=== PATIENT | female | born 1965 | race Caucasian/White ===

== ENCOUNTER 2017-03-26 22:51 | Inpatient (IN) | END 2017-03-30 14:47 | disposition home or self-care (01) | DRG 389 ==

== ENCOUNTER 2017-04-06 12:43 | Inpatient (IN) | END 2017-04-09 13:55 | disposition left against medical advice (07) | DRG 445 ==

== ENCOUNTER 2017-05-16 15:19 | Emergency (ER) | END 2017-05-16 21:03 | disposition home or self-care (01) ==

== ENCOUNTER 2017-09-22 14:56 | Day surgery (SDC) | END 2017-09-22 17:34 | disposition home or self-care (01) ==

== ENCOUNTER 2017-10-24 12:27 | Emergency (ER) | END 2017-10-24 14:56 | disposition home or self-care (01) ==

== ENCOUNTER 2018-07-14 14:51 | Emergency (ER) | payer MEDICARE, OTHER ==
[~2018-07-14] VITALS: Ht 157.5 cm; Wt 64.0 kg
[~2018-07-14 14:51] MED LIST: BENZ1TAB7 PO; CLON0.5T14 PO; DONE5TAB7 PO; ESCI20TA PO; MECL12.574 PO; MEMA5TAB PO; PROP10TA6 PO; QUET200T27 PO; QUET400T4 PO; VALB40CA PO
[2018-07-14 15:11] VITALS: Ht 157.5 cm; Wt 64.0 kg
--- NOTE | 2018-07-14 18:30 | ERD ---
ER Documentation Chief Complaint Chief Complaint pt is bib son with c/o she has weakness, excess saliva, cant eat/move HPI This is a very pleasant 53-year-old female with a history of depression and schizophrenia who states that she is here because she does not feel good. She states that her psychiatrist had changed some medications 2 weeks ago and then discontinued a few of them 3 days ago. The patient is complaining that she has a difficult time moving her muscles and sometimes they lock up. She says she is having excessive saliva and sometimes can control the movement of her mouth. She is not having any suicidal or homicidal ideations and not having any auditory or visual hallucinations. ROS All systems reviewed and are negative except as per history of present illness. Medications Home Meds Active Scripts Meclizine Hcl* (Antivert*) 12.5 Mg Tab, 25 MG PO Q6H PRN for DIZZINESS, #20 TAB Prov:MICHELLE CASAREZ MD 10/24/17 Reported Medications Quetiapine Fumarate* (Quetiapine Fumarate*) 200 Mg Tablet, 200 MG PO HS, TAB 09/22/17 Memantine* (Namenda*) 5 Mg Tablet, 5 MG PO BID, #60 TAB 09/22/17 Valbenazine Tosylate (Ingrezza) 40 Mg Capsule, 40 MG PO, CAP 09/22/17 Propranolol Hcl* (Propranolol Hcl*) 10 Mg Tablet, 10 MG PO BID, TAB take 10mg by mouth in the morning and 20mg at lunch. 04/05/17 Clonazepam* (Clonazepam*) 0.5 Mg Tablet, 0.25 MG PO BID, TAB 04/05/17 Escitalopram Oxalate* (Lexapro*) 20 Mg Tablet, 20 MG PO QHS, #30 TAB 03/29/17 Quetiapine Fumarate* (Seroquel* XR) 400 Mg Tab.sr.24h, 400 MG PO QHS, #30 TAB 03/29/17 Benztropine Mesylate* (Cogentin*) 1 Mg Tab, 1 MG PO BID, TAB 03/28/17 Donepezil* (Donepezil*) 5 Mg Tablet, 5 MG PO DAILY, #30 TAB 03/28/17 Allergies Allergies: Coded Allergies: No Known Allergy (Unverified , N/A, 10/24/17) PMhx/Soc History of Surgery: Yes (c section x1) Anesthesia Reaction: Yes Hx Neurological Disorder: No Hx Respiratory Disorders: No Hx Cardiac Disorders: No Hx Psychiatric Problems: Yes (SCHINOPHRENIA, Dementia) Hx Miscellaneous Medical Probl: No Hx Alcohol Use: No Hx Substance Use: No Hx Tobacco Use: Yes (6 CIG) Smoking Status: Current every day smoker FmHx Family History: No coronary disease Physical Exam Vitals Vital Signs Date Temp Pulse Resp B/P (MAP) Pulse Ox O2 O2 Flow FiO2 Time Delivery Rate 07/14/18 98.3 65 16 115/56 98 17:20 (75) 07/14/18 98.3 98 16 115/56 98 15:11 (75) Physical Exam Const: Well-developed, well-nourished Head: Atraumatic, normocephalic Eyes: Normal Conjunctiva, PERRLA, EOMI, normal sclera, no nystagmus ENT: Normal External Ears, Nose and Mouth, moist mucus membranes. Neck: Full range of motion. No meningismus, no lymphadenopathy. Resp: Clear to auscultation bilaterally, no wheezing, rhonchi, rales Cardio: Regular rate and rhythm, no murmurs, S1 S2 present Abd: Soft, non tender x 4, non distended. Normal bowel sounds, no guarding or rebound, no pulsitile abdominal masses or bruits Skin: No petechiae or rashes, no ecchymosis , no maculopapular rash Back: No midline or flank tenderness Ext: No cyanosis, or edema, FROM x 4, normal inspection, neurovas cularly intact x 4 Neur: Awake and alert, STR 5/5 x 4, sensation intact x 4, no focal findings, cerebellum intact Psych: Normal Mood and Affect some what flat Procedures/MDM Patient is on multiple medications. It sounds like she is having some type of cholinergic issue. I will consult psychiatry to review her medications and see what we can do about changing some dosage or stopping some. Medications: Aristada 441 mg IM q. 4 weekslast given 06/19/2018 Seroquel 100 mg p.o. nightly Lexapro 20 mg p.o. nightly Ingrezza 80 mg p.o. nightly Propanolol 20 mg p.o. every morning and 20 mg p.o. q. noon Klonopin 0.25 mg p.o. nightly Donezepil 5 mg p.o. nightly Memantine 5 mg p.o. twice daily that the neurologist discontinued on 07/11/2018 Meclizine 12.5 mg p.o. as needed Vitamin D Calcium 600 mg Amlodipine 5 mg p.o. dailyneurologist discontinued 07/11/2018 Omeprazole 40 mg p.o. daily Discussed the case with the telemetry psychiatrist who evaluated her as well. We feel that after discussion and that he recommends just maintaining current therapy and to call her doctor on Tuesday. Her symptoms are definitely side effects however there are not severe enough or life-threatening and are only mild. He feels that she just needs some medi cation adjusting. I relayed this to her Departure Diagnosis: Primary Impression: Medication side effects Condition: Stable VISHAL MICHAUD DO July 14, 2018 18:30
--- NOTE | 2018-07-14 18:35 | PSY ---
Date/Time of Note Date/Time of Note DATE: 07/14/18 TIME: 21:29 Psychiatric Subjective Eval Consent Pt consented to telemedicine: Yes Subjective Evaluation Patient location: emergency Chief Complaint: pt is bib son with c/o she has weakness, excess saliva, cant eat/move History of present illness HPI: 53 yo female with ho schizophrenia and remote cocaine dependence, bib son due to feeling weak, decreased eating or moving and excessive saliva after changing meds. Pt also reports not feeling well, says that this is because of meds that her psychiatrst recntly prescribed. Pt denies si or drug use. Reports she has trouble moving her limbs. Denies si or avh. spoke with the attending. He read note from pt's outpatient psychiatrist w pastor indicated that pt has been decreasing clonazepam, off of benztropine, TD resolved with ingrezza and pt began Abilify depot. Past Psych Hx: + ho psych admits, denies suicide attempts PMHx: pt unable to repor nkda Meds: aristada, clonazepam 0.25mg bid, lexapro, 50mg seroquel hs MSE: casually groomed, cooperative, decreased prosody of speech, latency of speech rseponse blunted affect, appears parkinsonized mildly disorganized, vague, denies avh denies si/hi Imp: 53 yo female with schizophrenia, appears to be suffering EPS from meds (depot abilify) recommend parallel hx from son; if pt is able to fxn (and no si is confirmed) pt could be discharged as long as she can eat and move at home; if side fx too severe pt would need admission since pt on depot med best treatment would be to touch base with pt's outpatient psychiatrist to consider lowering dose of depot med utox Medical history Problems Medical Problems: (1) Anemia Status: Acute (2) Anemia Status: Acute (3) Anemia Status: Acute (4) Biliary colic Status: Acute (5) Bursitis, prepatellar Status: Acute (6) Dizziness Status: Acute (7) Dizziness Status: Acute (8) Generalized abdominal pain Status: Acute (9) Sexually transmitted disease Status: Acute (10) Small bowel obstruction Status: Acute (11) UTI (urinary tract infection) Status: Acute Allergies: Coded Allergies: No Known Allergy (Unverified , N/A, 10/24/17) Assessment and Plan Recommendation/Plan Multiple antipsychotics: Yes Discharge Disposition: Community (Other) Legal Status: Voluntary ROSA M PINEDA July 14, 2018 18:35
[2018-07-14 19:28] VITALS: BP 105/79; PULSE 63; RESP 16
== END 2018-07-14 20:06 | disposition home or self-care (01) ==
LOC: E/R 14:51
DX: T88.7XXA Unspecified adverse effect of drug or medicament, initial encounter (principal); F17.210 Nicotine dependence, cigarettes, uncomplicated; R40.2142 Coma scale, eyes open, spontaneous, at arrival to emergency department; R40.2362 Coma scale, best motor response, obeys commands, at arrival to emergency department; R40.2252 Coma scale, best verbal response, oriented, at arrival to emergency department; Y82.9 Unspecified medical devices associated with adverse incidents
CPT/HCPCS: 99282

== ENCOUNTER 2018-07-21 21:08 | Inpatient (IN) | payer MEDICARE, OTHER ==
[~2018-07-21] VITALS: Ht 160 cm; Wt 58.3 kg
[2018-07-21] MEDS ORDERED: ACETAMINOPHEN 325 MG TAB PO PRN ×2 (23:00→23:30)
[2018-07-21] MEDS ORDERED: ONDANSETRON 4 MG INJ IV PRN ×2 (23:00→23:30)
[2018-07-21] MEDS ORDERED: ASPIRIN 81 MG TAB PO ONE (23:30)
[2018-07-21] MEDS ORDERED: NACL 0.9% 3 ML SYG IV SCH (23:30)
[2018-07-21] MEDS ORDERED: ALBUTEROL/IPRATROPIUM (NEB) 3 ML AMP HHN PRN (23:30)
[2018-07-21] MEDS: MEMANTINE 5 MG TAB PO SCH (23:30)
[2018-07-21] MEDS ORDERED: MECLIZINE 12.5 MG TAB PO PRN (23:30)
[2018-07-21] MEDS: BENZTROPINE 1 MG TAB PO SCH (23:30)
--- NOTE | 2018-07-21 23:33 | HP ---
Date/Time of Note Date/Time of Note DATE: 07/21/18 TIME: 23:33 Assessment/Plan VTE Prophylaxis Pharmacological prophylaxis: heparin Lines/Catheters IV [facility]from [facility] Saline Lock Assessment/Plan Assessment/Plan 53-year-old male with a history of schizophrenia brought to the ER for 1. Rule out CVA -Patient presented with drooling, slurred speech, diplopia, headache, right upper and lower extremity weakness/numbness. Patient now also reporting left upper extremity weakness -He was evaluated by the telemetry psychiatrist a week ago for a drooling and weakness which was thought to be secondary to EPS from meds -Head CT negative for acute findings -Check CT angio the head and neck and MRI of the brain -2D echo -Aspirin. Will not add statin at this time. -Neurology and psychiatry consult -PT and speech/swallow eval 2. Schizophrenia: Continue home meds -See #1 3. Cognitive impairment: Continue donepezil and memantine Result Diagram: 07/21/18214307/21/182143 Results 24hrs Laboratory Tests Test 07/21/18 21:44 07/21/18 21:45 White Blood Count 4.7 #L Red Blood Count 4.30 Hemoglobin 12.3 Hematocrit 37.2 Mean Corpuscular Volume 86.5 Mean Corpuscular Hemoglobin 28.6 L Mean Corpuscular Hemoglobin Concent 33.1 Red Cell Distribution Width 13.3 Platelet Count 231 # Mean Platelet Volume 9.3 Immature Granulocytes % 0.200 Neutrophils % 44.9 Lymphocytes % 41.8 Monocytes % 7.3 Eosinophils % 5.4 Basophils % 0.4 Nucleated Red Blood Cells % 0.0 Immature Granulocytes # 0.010 Neutrophils # 2.1 Lymphocytes # 2.0 Monocytes # 0.3 Eosinophils # 0.3 Basophils # 0.0 Nucleated Red Blood Cells # 0.0 Prothrombin Time 12.0 Prothrombin Time Ratio 0.9 INR International Normalized Ratio 0.88 Activated Partial Thromboplast Time 29.1 Sodium Level 143 Potassium Level 3.9 Chloride Level 107 Carbon Dioxide Level 25 Anion Gap 11 Blood Urea Nitrogen 10 Creatinine 0.55 Est Glomerular Filtrat Rate mL/min > 60 Glucose Level 91 Calcium Level 9.8 Total Bilirubin 0.9 Direct Bilirubin 0.00 Indirect Bilirubin 0.9 Aspartate Amino Transf (AST/SGOT) 25 Alanine Aminotransferase (ALT/SGPT) 13 Alkaline Phosphatase 83 Troponin I < 0.012 Total Protein 8.0 Albumin 4.5 Globulin 3.50 H Albumin/Globulin Ratio 1.28 Triglycerides Level 102 Cholesterol Level 180 LDL Cholesterol, Calculated 100 HDL Cholesterol 60 Cholesterol/HDL Ratio 3.0 Urine Color STRAW Urine Clarity CLEAR Urine pH 7.0 Urine Specific [place] 1.008 Urine Ketones NEGATIVE Urine Nitrite NEGATIVE Urine Bilirubin NEGATIVE Urine Urobilinogen NEGATIVE Urine Leukocyte Esterase TRACE A Urine Microscopic RBC 1 Urine Microscopic WBC 5 Urine Hemoglobin NEGATIVE Urine Glucose NEGATIVE Urine Total Protein NEGATIVE Hemoglobin A1c 5.3 Urine Opiates Screen Negative Urine Barbiturates Negative Urine Amphetamines Screen Negative Urine Benzodiazepines Screen Negative Urine Cocaine Screen Negative Urine Cannabinoids Negative HPI/ROS Admit Date/Time Admit Date/Time Hx of Present Illness This is a 53-year-old female with a history of schizophrenia, gastritis, gallstones, SBO who was brought to the ER for drooling, double vision, slurred speech, headache, right upper and lower extremity weakness/numbness and chest pain. Patient was sent with a piece of paper describing her symptoms because she is a poor historian. Symptom of drooling and slurred speech has been going on for at least 10 days. On my questioning, she complained of headache and left upper extremity weakness. When I told her about what is written on the paper that she came in with, she acknowledges that she has been having right-sided weakness, but said now she is having left upper extremity weakness as well. I noticed some tremor of both upper extremities. He did come to our ER a week ago and at that time he was evaluated by the telemetry psychiatrist who felt patient had EPS from meds. It seems like patient have had TD which resolved after he was started with Ingrezza. Patient at that time was instructed to follow-up with his own psychiatrist. When he presented to the ER this time, head CT negative for acute findings. Heart rate has been in the 50s otherwise vitals stable PMH/Family/Social Past Medical History Medical History: other (See HPI) Medications Current Medications Ondansetron HCl (Zofran Inj) 4 mg ER BRIDGE PRN IV NAUSEA/VOMITING; Start 07/21/18 at 23:00; Stop 07/22/18 at 22:59 Acetaminophen (Tylenol Tab) 650 mg ER BRIDGE PRN PO .MILD PAIN 1-3 OR TEMP; Start 07/21/18 at 23:00; Stop 07/22/18 at 22:59 Aspirin (Aspirin) 162 mg ONCE ONCE PO ; Start 07/21/18 at 23:30; Stop 07/21/18 at 23:31; Status UNV Coded Allergies: No Known Allergy (Unverified , N/A, 10/24/17) Past Surgical History Past Surgical Hx: other (See HPI) Family History Significant Family History: no pertinent family hx Social History Alcohol Use: none Smoking Status: Never smoker Drug Use: none Exam/Review of Systems Vital Signs Vitals Vital Signs Date Temp Pulse Resp B/P (MAP) Pulse Ox O2 O2 Flow FiO2 Time Delivery Rate 07/21/18 97.1 56 20 109/62 97 21:11 (78) Exam Constitutional: other (No acute distress) Head: normocephalic, atraumatic Eyes: PERRL Respiratory: clear to auscultation Cardiovascular: regular rate and rhythm Gastrointestinal: soft Extremities: normal pulses MIGUE BLOUNT MD July 21, 2018 23:33
--- NOTE | 2018-07-21 23:34 | ERD ---
ER Documentation Chief Complaint Chief Complaint DROOLING X 10 DAYS. PAIN, NUMNESS R SIDE BODY H/A . L SIDE FACE NUMB X 3 DA HPI 53-year-old female history of schizophrenia who presents to the emergency room complaining of 10 days of slurred speech, drooling, difficulty swallowing, right-sided upper and lower extremity paresis and numbness and tingling. The patient has no weakness currently. Patient does have some numbness and tingling. She denies any new medications. No fevers or chills, no falls or head injury. ROS All systems reviewed and are negative except as per history of present illness. Medications Home Meds Active Scripts Meclizine Hcl* (Antivert*) 12.5 Mg Tab, 25 MG PO Q6H PRN for DIZZINESS, #20 TAB Prov:MICHELLE CASAREZ MD 10/24/17 Reported Medications Quetiapine Fumarate* (Quetiapine Fumarate*) 200 Mg Tablet, 200 MG PO HS, TAB 09/22/17 Memantine* (Namenda*) 5 Mg Tablet, 5 MG PO BID, #60 TAB 09/22/17 Valbenazine Tosylate (Ingrezza) 40 Mg Capsule, 40 MG PO, CAP 09/22/17 Propranolol Hcl* (Propranolol Hcl*) 10 Mg Tablet, 10 MG PO BID, TAB take 10mg by mouth in the morning and 20mg at lunch. 04/05/17 Clonazepam* (Clonazepam*) 0.5 Mg Tablet, 0.25 MG PO BID, TAB 04/05/17 Escitalopram Oxalate* (Lexapro*) 20 Mg Tablet, 20 MG PO QHS, #30 TAB 03/29/17 Quetiapine Fumarate* (Seroquel* XR) 400 Mg Tab.sr.24h, 400 MG PO QHS, #30 TAB 03/29/17 Benztropine Mesylate* (Cogentin*) 1 Mg Tab, 1 MG PO BID, TAB 03/28/17 Donepezil* (Donepezil*) 5 Mg Tablet, 5 MG PO DAILY, #30 TAB 03/28/17 Allergies Allergies: Coded Allergies: No Known Allergy (Unverified , N/A, 10/24/17) PMhx/Soc History of Surgery: Yes (c section x1) Anesthesia Reaction: Yes Hx Neurological Disorder: No Hx Respiratory Disorders: No Hx Cardiac Disorders: No Hx Psychiatric Problems: Yes (SCHINOPHRENIA, Dementia) Hx Miscellaneous Medical Probl: No Hx Alcohol Use: No Hx Substance Use: No Hx Tobacco Use: Yes (6 CIG) Smoking Status: Never smoker FmHx Family History: No diabetes Physical Exam Vitals Vital Signs Date Temp Pulse Resp B/P (MAP) Pulse Ox O2 O2 Flow FiO2 Time Delivery Rate 07/21/18 97.1 56 20 109/62 97 21:11 (78) Physical Exam General: Well developed, well nourished, no acute distress Head: Normocephalic, atraumatic. Eyes: Pupils equally reactive, EOM intact ENT: Moist mucous membranes Neck: Supple, no lymphadenopathy Respiratory: Lungs clear bilaterally, no distress Cardiovascular: RRR, no murmurs, rubs, or gallops Abdominal: Soft, non-tender, non-distended, no peritoneal signs : Deferred MSK: No edema, no unilateral swelling, 5/5 strength Neurologic: Alert and oriented, moving all extremities, slight drooling and dysarthria, no focal weakness, no cerebellar signs, no pronator drift, normal rapid alternating movements. NIHSS 1 Skin: No rash Psych: Normal mood Result Diagram: 07/21/18214307/21/182143 Results 24 hrs Laboratory Tests Test 07/21/18 21:44 07/21/18 21:45 White Blood Count 4.7 10^3/ul Red Blood Count 4.30 10^6/ul Hemoglobin 12.3 g/dl Hematocrit 37.2 % Mean Corpuscular Volume 86.5 fl Mean Corpuscular Hemoglobin 28.6 pg Mean Corpuscular Hemoglobin Concent 33.1 g/dl Red Cell Distribution Width 13.3 % Platelet Count 231 10^3/UL Mean Platelet Volume 9.3 fl Immature Granulocytes % 0.200 % Neutrophils % 44.9 % Lymphocytes % 41.8 % Monocytes % 7.3 % Eosinophils % 5.4 % Basophils % 0.4 % Nucleated Red Blood Cells % 0.0 /100WBC Immature Granulocytes # 0.010 10^3/ul Neutrophils # 2.1 10^3/ul Lymphocytes # 2.0 10^3/ul Monocytes # 0.3 10^3/ul Eosinophils # 0.3 10^3/ul Basophils # 0.0 10^3/ul Nucleated Red Blood Cells # 0.0 10^3/ul Prothrombin Time 12.0 Sec Prothrombin Time Ratio 0.9 INR International Normalized Ratio 0.88 Activated Partial Thromboplast Time 29.1 Sec Sodium Level 143 mmol/L Potassium Level 3.9 mmol/L Chloride Level 107 mmol/L Carbon Dioxide Level 25 mmol/L Anion Gap 11 Blood Urea Nitrogen 10 mg/dl Creatinine 0.55 mg/dl Est Glomerular Filtrat Rate mL/min > 60 mL/min Glucose Level 91 mg/dl Calcium Level 9.8 mg/dl Total Bilirubin 0.9 mg/dl Direct Bilirubin 0.00 mg/dl Indirect Bilirubin 0.9 mg/dl Aspartate Amino Transf (AST/SGOT) 25 IU/L Alanine Aminotransferase (ALT/SGPT) 13 IU/L Alkaline Phosphatase 83 IU/L Troponin I < 0.012 ng/ml Total Protein 8.0 g/dl Albumin 4.5 g/dl Globulin 3.50 g/dl Albumin/Globulin Ratio 1.28 Triglycerides Level 102 mg/dl Cholesterol Level 180 mg/dl LDL Cholesterol, Calculated 100 mg/dl HDL Cholesterol 60 mg/dl Cholesterol/HDL Ratio 3.0 RATIO Urine Color STRAW Urine Clarity CLEAR Urine pH 7.0 Urine Specific [place] 1.008 Urine Ketones NEGATIVE mg/dL Urine Nitrite NEGATIVE mg/dL Urine Bilirubin NEGATIVE mg/dL Urine Urobilinogen NEGATIVE mg/dL Urine Leukocyte Esterase TRACE Vanesa/ul Urine Microscopic RBC 1 /HPF Urine Microscopic WBC 5 /HPF Urine Hemoglobin NEGATIVE mg/dL Urine Glucose NEGATIVE mg/dL Urine Total Protein NEGATIVE mg/dl Hemoglobin A1c 5.3 % Urine Opiates Screen Negative Urine Barbiturates Negative Urine Amphetamines Screen Negative Urine Benzodiazepines Screen Negative Urine Cocaine Screen Negative Urine Cannabinoids Negative Current Medications Medications Dose Sig/Bev Start Time Status Last (Trade) Ordered Route PRN Stop Time Admin Dose Reason Admin Ondansetron 4 mg ER BRIDGE 07/21/18 HCl (Zofran PRN IV 23:00 Inj) NAUSEA/VOMITI 07/22/18 22:59 NG 650 mg ER BRIDGE 07/21/18 Acetaminophen PRN PO 23:00 (Tylenol .MILD PAIN 07/22/18 22:59 Tab) 1-3 OR TEMP Procedures/MDM EKG, MONITORS, & DIAGNOSTIC IMAGING: EKG: I reviewed and interpreted a 12-lead EKG. Rhythm: Normal sinus rhythm Ectopy: None Arrhythmia: None Intervals: No abnormalities ST segments: No elevations or depressions T waves: No contiguous inversions Interpretation: No acute cardiac ischemia Chest x-ray: I reviewed and interpreted a 1 view of the chest Mediastinum: No enlargement Cardiac silhouette: No cardiomegaly Airspace: Clear lung mckeon bilaterally without evidence of pneumothorax Bones: No evidence of fracture Interpretation: No acute cardiopulmonary process CT Brain: No acute process per radiologist read LAB INTERPRETATION: No acute process, reviewed. MEDICAL DECISION MAKING: The patient's symptoms are subacute and 10 days in etiology. The patient's NIH SS is 1. The patient may potentially have evidence of a subacute stroke that warrants hospitalization, risk stratification and MRI imaging. ER COURSE: Stroke assessment and timing: Last known well time: Proximal 2009 days ago NIHSS: 1 TPA decision-making: The patient is not a candidate given subacute presentation greater than 10 days. Interventional decision-making: Patient is not a candidate given subacute presentation greater than 10 days Aspirin provided I kept the patient and/or family informed of laboratory and diagnostic imaging results throughout the emergency room course. DISPOSITION PLAN: Telemetry admission Accepting care team and consultations: I discussed the current laboratory data, diagnostic imaging and emergency care provided. Admitting team: Dr. Sinclair Admitting team indication: Insurance directed Departure Diagnosis: Primary Impression: Slurred speech Additional Impression: Right sided weakness Condition: Stable DUSTY NORRIS MD July 21, 2018 23:34
[2018-07-22] VITALS (13 sets, daily range): BP systolic 77–113; BP diastolic 42–66; PULSE 48–61; RESP 17–22; Ht 160 cm; Wt 58.3 kg
[2018-07-22] MEDS: BENZTROPINE 1 MG TAB PO SCH ×2 (09:20→20:14)
[2018-07-22] MEDS: MEMANTINE 5 MG TAB PO SCH ×2 (09:20→20:15)
[2018-07-22] MEDS: ASPIRIN 81 MG TAB PO SCH (09:20)
[2018-07-22] MEDS: clonAZEPAM 0.5 MG TAB PO SCH ×2 (09:20→20:13)
[2018-07-22] MEDS: ENOXAPARIN 40 MG/0.4 ML SYG SC SCH (10:05)
[2018-07-22] MEDS ORDERED: SOD CHLORIDE 0.9% 100 ML ONE (11:28)
[2018-07-22] MEDS ORDERED: IOHEXOL 100 ML ONE (11:28)
[2018-07-22] MEDS: PROPRANOLOL 10 MG TAB PO SCH ×2 (14:02→20:14)
[2018-07-22] MEDS: DONEPEZIL 5 MG TAB PO SCH (14:02)
--- NOTE | 2018-07-22 16:49 | PN ---
Date/Time of Note Date/Time of Note DATE: 07/22/18 TIME: 16:46 Assessment/Plan VTE Prophylaxis Risk score (from Nsg)>0 risk: 2 Pharmacological prophylaxis: LMWH Lines/Catheters IV Catheter Type (from Nrsg): Saline Lock Urinary Cath still in place: No Assessment/Plan Hospital Course 53-year-old male with a history of schizophrenia brought to the ER for 1. Rule out CVA -Patient presented with drooling, slurred speech, diplopia, headache, right upper and lower extremity weakness/numbness. Patient now also reporting left upper extremity weakness -Patient was evaluated by the telemetry psychiatrist a week ago for a drooling and weakness which was thought to be secondary to EPS from meds -Head CT negative for acute findings -Check CT angio the head and neck and MRI of the brain -2D echo -Aspirin. Will not add statin at this time. -Neurology and psychiatry consults obtained -PT and speech/swallow eval 2. Schizophrenia: Continue home meds -See #1 3. Cognitive impairment: Continue donepezil and memantine Prophylaxis: Lovenox Result Diagram: 07/22/18 0432 07/22/18 0432 Results 24hrs Laboratory Tests Test 07/21/18 21:44 07/21/18 21:45 07/21/18 23:55 07/22/18 04:32 White Blood Count 4.7 #L 4.5 L Red Blood Count 4.30 3.89 L Hemoglobin 12.3 11.1 L Hematocrit 37.2 33.9 L Mean Corpuscular 86.5 87.1 Volume Mean Corpuscular 28.6 L 28.5 L Hemoglobin Mean Corpuscular 33.1 32.7 Hemoglobin Concent Red Cell 13.3 13.2 Distribution Width Platelet Count 231 # 205 Mean Platelet Volume 9.3 9.5 Immature 0.200 0.200 Granulocytes % Neutrophils % 44.9 37.8 L Lymphocytes % 41.8 48.1 Monocytes % 7.3 8.0 Eosinophils % 5.4 5.5 Basophils % 0.4 0.4 Nucleated Red Blood 0.0 0.0 Cells % Immature 0.010 0.010 Granulocytes # Neutrophils # 2.1 1.7 Lymphocytes # 2.0 2.2 Monocytes # 0.3 0.4 Eosinophils # 0.3 0.3 Basophils # 0.0 0.0 Nucleated Red Blood 0.0 0.0 Cells # Prothrombin Time 12.0 Prothrombin Time 0.9 Ratio INR International 0.88 Normalized Ratio Activated 29.1 Partial Thromboplast Time Sodium Level 143 141 Potassium Level 3.9 3.5 Chloride Level 107 107 Carbon Dioxide Level 25 27 Anion Gap 11 7 Blood Urea Nitrogen 10 11 Creatinine 0.55 0.56 Est Glomerular > 60 > 60 Filtrat Rate mL/min Glucose Level 91 88 Calcium Level 9.8 9.4 Total Bilirubin 0.9 0.9 Direct Bilirubin 0.00 0.00 Indirect Bilirubin 0.9 0.9 Aspartate Amino 25 22 Transf (AST/SGOT) Alanine 13 17 Aminotransferase (AL T/SGPT) Alkaline Phosphatase 83 67 Troponin I < 0.012 < 0.012 < 0.012 Total Protein 8.0 6.6 # Albumin 4.5 3.7 Globulin 3.50 H 2.90 Albumin/Globulin 1.28 1.27 Ratio Triglycerides Level 102 76 Cholesterol Level 180 155 LDL Cholesterol, 100 90 Calculated HDL Cholesterol 60 50 # Cholesterol/HDL 3.0 3.1 Ratio Urine Color STRAW Urine Clarity CLEAR Urine pH 7.0 Urine Specific 1.008 [place] Urine Ketones NEGATIVE Urine Nitrite NEGATIVE Urine Bilirubin NEGATIVE Urine Urobilinogen NEGATIVE Urine Leukocyte TRACE A Esterase Urine Microscopic 1 RBC Urine Microscopic 5 WBC Urine Hemoglobin NEGATIVE Urine Glucose NEGATIVE Urine Total Protein NEGATIVE Hemoglobin A1c 5.3 5.3 Urine Opiates Screen Negative Urine Barbiturates Negative Urine Amphetamines Negative Screen Urine Negative Benzodiazepines Screen Urine Cocaine Screen Negative Urine Cannabinoids Negative Creatine Kinase 95 86 Creatine Kinase 1.2 1.2 Index Creatinine Kinase MB 1.17 1.00 (Mass) Magnesium Level 1.7 Thyroid Stimulating 0.867 Hormone (TSH) Subjective 24 Hr Interval Summary Constitutional: disoriented Exam/Review of Systems Exam Vitals Vital Signs Date Temp Pulse Resp B/P (MAP) Pulse Ox O2 O2 Flow FiO2 Time Delivery Rate 07/22/18 98.4 55 22 90/52 (65) 96 Room Air 16:05 Constitutional: alert Respiratory: clear to auscultation Cardiovascular: regular rate and rhythm Gastrointestinal: soft; No distended Musculoskeletal: nl extremities to inspection Results Results 24hrs Laboratory Tests Test 07/21/18 21:44 07/21/18 21:45 07/21/18 23:55 07/22/18 04:32 White Blood Count 4.7 #L 4.5 L Red Blood Count 4.30 3.89 L Hemoglobin 12.3 11.1 L Hematocrit 37.2 33.9 L Mean Corpuscular 86.5 87.1 Volume Mean Corpuscular 28.6 L 28.5 L Hemoglobin Mean Corpuscular 33.1 32.7 Hemoglobin Concent Red Cell 13.3 13.2 Distribution Width Platelet Count 231 # 205 Mean Platelet Volume 9.3 9.5 Immature 0.200 0.200 Granulocytes % Neutrophils % 44.9 37.8 L Lymphocytes % 41.8 48.1 Monocytes % 7.3 8.0 Eosinophils % 5.4 5.5 Basophils % 0.4 0.4 Nucleated Red Blood 0.0 0.0 Cells % Immature 0.010 0.010 Granulocytes # Neutrophils # 2.1 1.7 Lymphocytes # 2.0 2.2 Monocytes # 0.3 0.4 Eosinophils # 0.3 0.3 Basophils # 0.0 0.0 Nucleated Red Blood 0.0 0.0 Cells # Prothrombin Time 12.0 Prothrombin Time 0.9 Ratio INR International 0.88 Normalized Ratio Activated 29.1 Partial Thromboplast Time Sodium Level 143 141 Potassium Level 3.9 3.5 Chloride Level 107 107 Carbon Dioxide Level 25 27 Anion Gap 11 7 Blood Urea Nitrogen 10 11 Creatinine 0.55 0.56 Est Glomerular > 60 > 60 Filtrat Rate mL/min Glucose Level 91 88 Calcium Level 9.8 9.4 Total Bilirubin 0.9 0.9 Direct Bilirubin 0.00 0.00 Indirect Bilirubin 0.9 0.9 Aspartate Amino 25 22 Transf (AST/SGOT) Alanine 13 17 Aminotransferase (AL T/SGPT) Alkaline Phosphatase 83 67 Troponin I < 0.012 < 0.012 < 0.012 Total Protein 8.0 6.6 # Albumin 4.5 3.7 Globulin 3.50 H 2.90 Albumin/Globulin 1.28 1.27 Ratio Triglycerides Level 102 76 Cholesterol Level 180 155 LDL Cholesterol, 100 90 Calculated HDL Cholesterol 60 50 # Cholesterol/HDL 3.0 3.1 Ratio Urine Color STRAW Urine Clarity CLEAR Urine pH 7.0 Urine Specific 1.008 [place] Urine Ketones NEGATIVE Urine Nitrite NEGATIVE Urine Bilirubin NEGATIVE Urine Urobilinogen NEGATIVE Urine Leukocyte TRACE A Esterase Urine Microscopic 1 RBC Urine Microscopic 5 WBC Urine Hemoglobin NEGATIVE Urine Glucose NEGATIVE Urine Total Protein NEGATIVE Hemoglobin A1c 5.3 5.3 Urine Opiates Screen Negative Urine Barbiturates Negative Urine Amphetamines Negative Screen Urine Negative Benzodiazepines Screen Urine Cocaine Screen Negative Urine Cannabinoids Negative Creatine Kinase 95 86 Creatine Kinase 1.2 1.2 Index Creatinine Kinase MB 1.17 1.00 (Mass) Magnesium Level 1.7 Thyroid Stimulating 0.867 Hormone (TSH) Medications Medication Current Medications Ondansetron HCl (Zofran Inj) 4 mg ER BRIDGE PRN IV NAUSEA/VOMITING; Start 07/21/18 at 23:00; Stop 07/22/18 at 22:59 Acetaminophen (Tylenol Tab) 650 mg ER BRIDGE PRN PO .MILD PAIN 1-3 OR TEMP; Start 07/21/18 at 23:00; Stop 07/22/18 at 22:59 IV Flush (NS 3 ml) 3 ml PER PROTOCOL IV ; Start 07/21/18 at 23:30 Ondansetron HCl (Zofran Inj) 4 mg Q6H PRN IV NAUSEA/VOMITING; Start 07/21/18 at 23:30 Aspirin (Aspirin) 81 mg DAILY PO Last administered on 07/22/18at 09:20; Admin Dose 81 MG; Start 07/22/18 at 09:00 Acetaminophen (Tylenol Tab) 650 mg Q6H PRN PO .PAIN 1-3 OR TEMP; Start 07/21/18 at 23:30 Enoxaparin Sodium (Lovenox) 40 mg DAILY SC Last administered on 07/22/18at 10:05; Admin Dose 40 MG; Start 07/22/18 at 09:00 Albuterol/ Ipratropium (Duoneb) 3 ml Q2H RESP THERAPY PRN HHN SHORTNESS OF BREATH; Start 07/21/18 at 23:30 Benztropine Mesylate (Cogentin) 1 mg BID PO Last administered on 07/22/18 09:20; Admin Dose 1 MG; Start 07/21/18 at 23:30 Clonazepam (Klonopin) 0.25 mg BID PO Last administered on 07/22/18at 09:20; Admin Dose 0.25 MG; Start 07/22/18 at 09:00 Donepezil HCl (Aricept) 5 mg DAILY PO Last administered on 07/22/18at 14:02; Admin Dose 5 MG; Start 07/22/18 at 09:00 Escitalopram Oxalate (Lexapro) 20 mg QHS PO ; Start 07/22/18 at 21:00 Meclizine HCl (Antivert) 25 mg Q6H PRN PO DIZZINESS; Start 07/21/18 at 23:30 Memantine (Namenda) 5 mg BID PO Last administered on 07/22/18at 09:20; Admin Dose 5 MG; Start 07/21/18 at 23:30 Propranolol HCl (Inderal) 10 mg BID PO Last administered on 07/22/18at 14:02; Admin Dose 10 MG; Start 07/22/18 at 09:00 Quetiapine Fumarate (Seroquel) 200 mg HS PO ; Start 07/22/18 at 21:00 JAKE MART July 22, 2018 16:49
[2018-07-22] MEDS: QUETIAPINE 100 MG TAB PO SCH (20:15)
[2018-07-22] MEDS: ESCITALOPRAM 10 MG TAB PO SCH (20:15)
[2018-07-23] VITALS (12 sets, daily range): BP systolic 68–105; BP diastolic 52–68; PULSE 56–65; RESP 20–22
[2018-07-23] MEDS: BENZTROPINE 1 MG TAB PO SCH ×2 (09:17→20:30)
[2018-07-23] MEDS: ASPIRIN 81 MG TAB PO SCH (09:17)
[2018-07-23] MEDS: MEMANTINE 5 MG TAB PO SCH ×2 (09:17→20:30)
[2018-07-23] MEDS: PROPRANOLOL 10 MG TAB PO SCH ×2 (09:18→20:29)
[2018-07-23] MEDS: DONEPEZIL 5 MG TAB PO SCH (09:19)
[2018-07-23] MEDS: clonAZEPAM 0.5 MG TAB PO SCH ×2 (09:22→20:30)
[2018-07-23] MEDS: ENOXAPARIN 40 MG/0.4 ML SYG SC SCH (09:30)
--- NOTE | 2018-07-23 10:44 | PN ---
Date/Time of Note Date/Time of Note DATE: 07/23/18 TIME: 10:41 Assessment/Plan VTE Prophylaxis Risk score (from Nsg)>0 risk: 2 Pharmacological prophylaxis: LMWH Lines/Catheters IV Catheter Type (from Nrsg): Saline Lock Urinary Cath still in place: No Assessment/Plan Hospital Course 53-year-old male with a history of schizophrenia brought to the ER for 1. 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 Will not add statin at this time. -Neurology and psychiatry consults obtained -PT and speech/swallow eval 2. Schizophrenia: Continue home meds -See #1 3. Cognitive impairment: Continue donepezil and memantine Prophylaxis: Lovenox DC planning: Follow-up on neurology and psychiatry recommendations, anticipate DC back to facility tomorrow Result Diagram: 07/22/18 0432 07/22/18 0432 Subjective 24 Hr Interval Summary Constitutional: no complaints Exam/Review of Systems Exam Vitals Vital Signs Date Temp Pulse Resp B/P (MAP) Pulse Ox O2 O2 Flow FiO2 Time Delivery Rate 07/23/18 62 08:00 07/23/18 98.0 22 94/68 (77) Room Air 07:56 07/23/18 96 03:52 Intake and Output 07/22/18 07/22/18 07/23/18 1515:00 23:00 07:00 IntakeIntake Total 980 ml 500 ml OutputOutput Total 1200 ml BalanceBalance -220 ml 500 ml Constitutional: alert Respiratory: clear to auscultation Cardiovascular: regular rate and rhythm Gastrointestinal: soft; No distended Musculoskeletal: nl extremities to inspection Medications Medication Current Medications IV Flush (NS 3 ml) 3 ml PER PROTOCOL IV ; Start 07/21/18 at 23:30 Ondansetron HCl (Zofran Inj) 4 mg Q6H PRN IV NAUSEA/VOMITING; Start 07/21/18 at 23:30 Aspirin (Aspirin) 81 mg DAILY PO Last administered on 07/23/18 09:17; Admin Dose 81 MG; Start 07/22/18 at 09:00 Acetaminophen (Tylenol Tab) 650 mg Q6H PRN PO .PAIN 1-3 OR TEMP Last administered on 07/23/18 04:37; Admin Dose 650 MG; Start 07/21/18 at 23:30 Enoxaparin Sodium (Lovenox) 40 mg DAILY SC Last administered on 07/23/18 09:30; Admin Dose 40 MG; Start 07/22/18 at 09:00 Albuterol/ Ipratropium (Duoneb) 3 ml Q2H RESP THERAPY PRN HHN SHORTNESS OF BREATH; Start 07/21/18 at 23:30 Benztropine Mesylate (Cogentin) 1 mg BID PO Last administered on 07/23/18 09:17; Admin Dose 1 MG; Start 07/21/18 at 23:30 Clonazepam (Klonopin) 0.25 mg BID PO Last administered on 07/23/18 09:22; Admin Dose 0.25 MG; Start 07/22/18 at 09:00 Donepezil HCl (Aricept) 5 mg DAILY PO Last administered on 07/23/18 09:19; Admin Dose 5 MG; Start 07/22/18 at 09:00 Escitalopram Oxalate (Lexapro) 20 mg QHS PO Last administered on 07/22/18 20:15; Admin Dose 20 MG; Start 07/22/18 at 21:00 Meclizine HCl (Antivert) 25 mg Q6H PRN PO DIZZINESS; Start 07/21/18 at 23:30 Memantine (Namenda) 5 mg BID PO Last administered on 07/23/18 09:17; Admin Dose 5 MG; Start 07/21/18 at 23:30 Propranolol HCl (Inderal) 10 mg BID PO Last administered on 07/23/18 09:18; Admin Dose 10 MG; Start 07/22/18 at 09:00 Quetiapine Fumarate (Seroquel) 200 mg HS PO Last administered on 07/22/18 20:15; Admin Dose 200 MG; Start 07/22/18 at 21:00 JAKE MART July 23, 2018 10:44
--- NOTE | 2018-07-23 11:13 | CONS ---
Consultation Date/Type/Reason Admit Date/Time July 21, 2018 at 22:38 Type of Consult Neurology Requesting Provider: JAKE MART Date/Time of Note DATE: 07/23/18 TIME: 11:13 24 HR Interval Summary Free Text/Dictation 53 yo F with hx of schizophrenia, gastritis, and other comorbidities who presents for evaluation of drooling, double vision, slurred speech, headache, R sided weakness and numbness and chest pain. History was obtained from pt and chart review. The pt currently endorses headache, generalized weakness, tingling in her calf muscle, diminished sensation in the R side of her face, double vision. She states that these sx have lasted for 10 days. She also states that some of her medications were changed recently, though she doesn't know which ones. She also states she was started on a new one recently. She has a hx of migraines. It is elsewhere noted: Hx of Present Illness This is a 53-year-old female with a history of schizophrenia, gastritis, gallstones, SBO who was brought to the ER for drooling, double vision, slurred speech, headache, right upper and lower extremity weakness/numbness and chest pain. Patient was sent with a piece of paper describing her symptoms because she is a poor historian. Symptom of drooling and slurred speech has been going on for at least 10 days. On my questioning, she complained of headache and left upper extremity weakness. When I told her about what is written on the paper that she came in with, she acknowledges that she has been having right-sided weakness, but said now she is having left upper extremity weakness as well. I noticed some tremor of both upper extremities. He did come to our ER a week ago and at that time he was evaluated by the telemetry psychiatrist who felt patient had EPS from meds. It seems like patient have had TD which resolved after he was started with Ingrezza. Patient at that time was instructed to follow-up with his own psychiatrist. When he presented to the ER this time, head CT negative for acute findings. H eart rate has been in the 50s otherwise vitals stable Exam Vital Signs Vitals Vital Signs Date Temp Pulse Resp B/P (MAP) Pulse Ox O2 O2 Flow FiO2 Time Delivery Rate 07/23/18 62 08:00 07/23/18 98.0 22 94/68 (77) Room Air 07:56 07/23/18 96 03:52 Intake and Output 07/22/18 07/22/18 07/23/18 1515:00 23:00 07:00 IntakeIntake Total 980 ml 500 ml OutputOutput Total 1200 ml BalanceBalance -220 ml 500 ml Exam PE: Gen Appearance: No Apparent Distress HEENT: Normocephalic Cardiovascular: Regular rate Lungs: Clear bilaterally Abdomen: Soft Extremities: Dry NE: The patient was alert and oriented. Language was normal. Fund of knowledge was normal. Pupils were equal and reactive to light. There was no afferent pupillary defect. Visual mckeon were normal. Funduscopic examination was limited. Extra-ocular movements were full. Ptosis was absent. There was no nystagmus. Facial sensation was normal. Face was symmetric with normal strength. Hearing was intact. Palate movements were normal. Neck strength was normal. There was normal tongue bulk and speed of movement. Tone was normal. Muscle bulk was reduced. I did not see fasciculations. The pt was generally weak, symmetrically. Vibration sensation was diminished on the RLE. Temperature and pinprick sensation was normal. Rapid alternating movements were normal. There was no dysmetria. There was no intention tremor. Gait was deferred due to bedrest. Arm and leg reflexes were 2+ and symmetric. Metcalf's sign was absent. Plantar responses were flexor. FLAVIO BENITEZ NP July 23, 2018 11:13
--- NOTE | 2018-07-23 13:58 | CONS ---
Assessment/Plan Assessment/Plan Hospital Course 53 yo F with hx of schizophrenia and other comorbidities who presents for evaluation of a multitude of sx... for which neurology is consulted. The clinical picture was initially concerning for a primary [employer] event. MRI is reassuringly without acute intracranial pathology. Sequelae of polypharmacy is considered. Somatization of an underlying psychiatric disorder is a diagnosis of exclusion. P: Ok to defer additional neuroimaging for now Cont workup and other medical management per primary [place] as necessary PT/OT/ST as necessary Will follow clinically, to recommend neurologic studies, as necessary Consultation Date/Type/Reason Admit Date/Time July 21, 2018 at 22:38 Type of Consult Neurology Reason for Consultation eval for stroke Requesting Provider: JAKE MART Date/Time of Note DATE: 07/23/18 TIME: 13:53 Hx of Present Illness 53 yo F with hx of schizophrenia, gastritis, and other comorbidities who presents for evaluation of drooling, double vision, slurred speech, headache, R sided weakness and numbness and chest pain. History was obtained from pt and chart review. The pt currently endorses headache, generalized weakness, tingling in her calf muscle, diminished sensation in the R side of her face, double vision. She states that these sx have lasted for 10 days. She also states that some of her medications were changed recently, though she doesn't know which ones. She also states she was started on a new one recently. She has a hx of migraines. It is elsewhere noted: Hx of Present Illness This is a 53-year-old female with a history of schizophrenia, gastritis, gallstones, SBO who was brought to the ER for drooling, double vision, slurred speech, headache, right upper and lower extremity weakness/numbness and chest pain. Patient was sent with a piece of paper describing her symptoms because she is a poor historian. Symptom of drooling and slurred speech has been going on for at least 10 days. On my questioning, she complained of headache and left upper extremity weakness. When I told her about what is written on the paper that she came in with, she acknowledges that she has been having right-sided weakness, but said now she is having left upper extremity weakness as well. I noticed some tremor of both upper extremities. He did come to our ER a week ago and at that time he was evaluated by the telemetry psychiatrist who felt patient had EPS from [facility]. It seems like patient have had TD which resolved after he was started with Ingrezza. Patient at that time was instructed to follow-up with his own psychiatrist. When he presented to the ER this time, head CT negative for acute findings. Heart rate has been in the 50s otherwise vitals stable negative unless noted otherwise in HPI Exam/Review of Systems Exam Vitals Vital Signs Date Temp Pulse Resp B/P (MAP) Pulse Ox O2 O2 Flow FiO2 Time Delivery Rate 07/23/18 61 12:00 07/23/18 97.8 21 100/58 96 Room Air 11:43 (72) Intake and Output 07/22/18 07/22/18 07/23/18 1414:59 22:59 06:59 IntakeIntake Total 980 ml 500 ml OutputOutput Total 1200 ml BalanceBalance -220 ml 500 ml Exam PE: Gen Appearance: No Apparent Distress HEENT: Normocephalic Cardiovascular: Regular rate Lungs: Clear bilaterally Abdomen: Soft Extremities: Dry NE: The patient was alert and oriented. Language was normal. Fund of knowledge was normal. Pupils were equal and reactive to light. There was no afferent pupillary defect. Visual mckeon were normal. Funduscopic examination was limited. Extra-ocular movements were full. Ptosis was absent. There was no nystagmus. Facial sensation was normal. Face was symmetric with normal strength. Hearing was intact. Palate movements were normal. Neck strength was normal. There was normal tongue bulk and speed of movement. Tone was normal. Muscle bulk was reduced. I did not see fasciculations. The pt was generally weak, symmetrically. Vibration sensation was diminished on the RLE. Temperature and pinprick sensation was normal. Rapid alternating movements were normal. There was no dysmetria. There was no intention tremor. Gait was deferred due to bedrest. Arm and leg reflexes were 2+ and symmetric. Metcalf's sign was absent. Plantar responses were flexor. Results Result Diagram: 07/22/18 0432 07/22/18 043 Medications Medication Current Medications IV Flush (NS 3 ml) 3 ml PER PROTOCOL IV ; Start 07/21/18 at 23:30 Ondansetron HCl (Zofran Inj) 4 mg Q6H PRN IV NAUSEA/VOMITING; Start 07/21/18 at 23:30 Aspirin (Aspirin) 81 mg DAILY PO Last administered on 07/23/18 09:17; Admin Dose 81 MG; Start 07/22/18 at 09:00 Acetaminophen (Tylenol Tab) 650 mg Q6H PRN PO .PAIN 1-3 OR TEMP Last administered on 07/23/18 04:37; Admin Dose 650 MG; Start 07/21/18 at 23:30 Enoxaparin Sodium (Lovenox) 40 mg DAILY SC Last administered on 07/23/18 09:30; Admin Dose 40 MG; Start 07/22/18 at 09:00 Albuterol/ Ipratropium (Duoneb) 3 ml Q2H RESP THERAPY PRN HHN SHORTNESS OF BREATH; Start 07/21/18 at 23:30 Benztropine Mesylate (Cogentin) 1 mg BID PO Last administered on 07/23/18 09:17; Admin Dose 1 MG; Start 07/21/18 at 23:30 Clonazepam (Klonopin) 0.25 mg BID PO Last administered on 07/23/18 09:22; Admin Dose 0.25 MG; Start 07/22/18 at 09:00 Donepezil HCl (Aricept) 5 mg DAILY PO Last administered on 07/23/18 09:19; Admin Dose 5 MG; Start 07/22/18 at 09:00 Escitalopram Oxalate (Lexapro) 20 mg QHS PO Last administered on 07/22/18 20:15; Admin Dose 20 MG; Start 07/22/18 at 21:00 Meclizine HCl (Antivert) 25 mg Q6H PRN PO DIZZINESS Last administered on 07/23/18 11:10; Admin Dose 25 MG; Start 07/21/18 at 23:30 Memantine (Namenda) 5 mg BID PO Last administered on 07/23/18 09:17; Admin Dose 5 MG; Start 07/21/18 at 23:30 Propranolol HCl (Inderal) 10 mg BID PO Last administered on 07/23/18 09:18; Admin Dose 10 MG; Start 07/22/18 at 09:00 Quetiapine Fumarate (Seroquel) 200 mg HS PO Last administered on 07/22/18 20:15; Admin Dose 200 MG; Start 07/22/18 at 21:00 Past Medical History reviewed Medical History: other (See HPI) Home Meds Active Scripts Meclizine Hcl* (Antivert*) 12.5 Mg Tab, 25 MG PO Q6H PRN for DIZZINESS, #20 TAB Prov:MICHELLE CASAREZ MD 10/24/17 Reported Medications Quetiapine Fumarate* (Quetiapine Fumarate*) 200 Mg Tablet, 200 MG PO HS, TAB 09/22/17 Memantine* (Namenda*) 5 Mg Tablet, 5 MG PO BID, #60 TAB 09/22/17 Valbenazine Tosylate (Ingrezza) 40 Mg Capsule, 40 MG PO, CAP 09/22/17 Propranolol Hcl* (Propranolol Hcl*) 10 Mg Tablet, 10 MG PO BID, TAB take 10mg by mouth in the morning and 20mg at lunch. 04/05/17 Clonazepam* (Clonazepam*) 0.5 Mg Tablet, 0.25 MG PO BID, TAB 04/05/17 Escitalopram Oxalate* (Lexapro*) 20 Mg Tablet, 20 MG PO QHS, #30 TAB 03/29/17 Benztropine Mesylate* (Cogentin*) 1 Mg Tab, 1 MG PO BID, TAB 03/28/17 Donepezil* (Donepezil*) 5 Mg Tablet, 5 MG PO DAILY, #30 TAB 03/28/17 Discontinued Reported Medications Quetiapine Fumarate* (Seroquel* XR) 400 Mg Tab.sr.24h, 400 MG PO QHS, #30 TAB 03/29/17 Medications Current Medications IV Flush (NS 3 ml) 3 ml PER PROTOCOL IV ; Start 07/21/18 at 23:30 Ondansetron HCl (Zofran Inj) 4 mg Q6H PRN IV NAUSEA/VOMITING; Start 07/21/18 at 23:30 Aspirin (Aspirin) 81 mg DAILY PO Last administered on 07/23/18at 09:17; Admin Dose 81 MG; Start 07/22/18 at 09:00 Acetaminophen (Tylenol Tab) 650 mg Q6H PRN PO .PAIN 1-3 OR TEMP Last administered on 07/23/18at 04:37; Admin Dose 650 MG; Start 07/21/18 at 23:30 Enoxaparin Sodium (Lovenox) 40 mg DAILY SC Last administered on 07/23/18at 09:30; Admin Dose 40 MG; Start 07/22/18 at 09:00 Albuterol/ Ipratropium (Duoneb) 3 ml Q2H RESP THERAPY PRN HHN SHORTNESS OF BREATH; Start 07/21/18 at 23:30 Benztropine Mesylate (Cogentin) 1 mg BID PO Last administered on 07/23/18 09:17; Admin Dose 1 MG; Start 07/21/18 at 23:30 Clonazepam (Klonopin) 0.25 mg BID PO Last administered on 07/23/18 09:22; Admin Dose 0.25 MG; Start 07/22/18 at 09:00 Donepezil HCl (Aricept) 5 mg DAILY PO Last administered on 07/23/18 09:19; Admin Dose 5 MG; Start 07/22/18 at 09:00 Escitalopram Oxalate (Lexapro) 20 mg QHS PO Last administered on 07/22/18 20:15; Admin Dose 20 MG; Start 07/22/18 at 21:00 Meclizine HCl (Antivert) 25 mg Q6H PRN PO DIZZINESS Last administered on 07/23/18 11:10; Admin Dose 25 MG; Start 07/21/18 at 23:30 Memantine (Namenda) 5 mg BID PO Last administered on 07/23/18 09:17; Admin Dose 5 MG; Start 07/21/18 at 23:30 Propranolol HCl (Inderal) 10 mg BID PO Last administered on 07/23/18 09:18; Admin Dose 10 MG; Start 07/22/18 at 09:00 Quetiapine Fumarate (Seroquel) 200 mg HS PO Last administered on 07/22/18 20:15; Admin Dose 200 MG; Start 07/22/18 at 21:00 Allergies: Coded Allergies: No Known Allergy (Unverified , N/A, 10/24/17) Past Surgical History reviewed Past Surgical Hx: other (See HPI) Social History reviewed Alcohol Use: none Smoking Status: Never smoker Drug Use: none FLAVIO BENITEZ NP July 23, 2018 13:58
[2018-07-23] MEDS: ESCITALOPRAM 10 MG TAB PO SCH (20:30)
[2018-07-23] MEDS: QUETIAPINE 100 MG TAB PO SCH (20:30)
[2018-07-23] MEDS ORDERED: LORAZEPAM 2 MG INJ IV PRN (23:30)
[2018-07-24] VITALS (9 sets, daily range): BP systolic 91–107; BP diastolic 51–55; PULSE 52–83; RESP 18–19
[2018-07-24] MEDS: HALOPERIDOL 5 MG INJ IM ONE ×2 (00:23→01:14)
[2018-07-24] MEDS: clonAZEPAM 0.5 MG TAB PO SCH (08:43)
[2018-07-24] MEDS: DONEPEZIL 5 MG TAB PO SCH (08:43)
[2018-07-24] MEDS: ASPIRIN 81 MG TAB PO SCH (08:44)
[2018-07-24] MEDS: MEMANTINE 5 MG TAB PO SCH (08:44)
[2018-07-24] MEDS: BENZTROPINE 1 MG TAB PO SCH (08:44)
[2018-07-24] MEDS: ENOXAPARIN 40 MG/0.4 ML SYG SC SCH (08:50)
[2018-07-24] MEDS: PROPRANOLOL 10 MG TAB PO SCH (09:00)
[2018-07-24] MEDS ORDERED: PROPRANOLOL 20 MG TAB PO SCH (09:00)
--- NOTE | 2018-07-24 13:05 | CONS ---
Assessment/Plan Assessment/Plan Hospital Course 53 yo F with hx of schizophrenia and other comorbidities who presents for evaluation of a multitude of sx... for which neurology is consulted. The clinical picture was initially concerning for a primary [employer] event. MRI is reassuringly without acute intracranial pathology. Sequelae of polypharmacy is considered. Somatization of an underlying psychiatric disorder is a diagnosis of exclusion. P: Ok to defer additional neuroimaging for now Cont workup and other medical management per primary [place] as necessary PT/OT/ST as necessary Will follow clinically, to recommend neurologic studies, as necessary Consultation Date/Type/Reason Admit Date/Time July 21, 2018 at 22:38 Type of Consult Neurology Reason for Consultation eval for stroke Requesting Provider: JAKE MART Date/Time of Note DATE: 07/24/18 TIME: 13:05 24 HR Interval Summary Free Text/Dictation Continues acute care. Exam Vital Signs Vitals Vital Signs Date Temp Pulse Resp B/P (MAP) Pulse Ox O2 O2 Flow FiO2 Time Delivery Rate 07/24/18 59 12:06 07/24/18 97.8 18 92/55 (67) 97 Room Air 11:29 Intake and Output 07/23/18 07/23/18 07/24/18 1515:00 23:00 07:00 IntakeIntake Total 800 ml 600 ml OutputOutput Total 1100 ml BalanceBalance -300 ml 600 ml Exam PE: Gen Appearance: No Apparent Distress HEENT: Normocephalic Cardiovascular: Regular rate Lungs: Clear bilaterally Abdomen: Soft Extremities: Dry NE: The patient was alert and oriented. Language was normal. Fund of knowledge was normal. Pupils were equal and reactive to light. There was no afferent pupillary defect. Visual mckeon were normal. Funduscopic examination was limited. Extra-ocular movements were full. Ptosis was absent. There was no nystagmus. Facial sensation was normal. Face was symmetric with normal strength. Hearing was intact. Palate movements were normal. Neck strength was normal. There was normal tongue bulk and speed of movement. Tone was normal. Muscle bulk was reduced. I did not see fasciculations. The pt was generally weak, symmetrically. Vibration sensation was normal. Temperature and pinprick sensation was normal. Rapid alternating movements were normal. There was no dysmetria. There was no intention tremor. Gait was deferred due to bedrest. Arm and leg reflexes were 2+ and symmetric. Metcalf's sign was absent. Plantar responses were flexor. FLAVIO BENITEZ NP July 24, 2018 13:05
--- NOTE | 2018-07-24 13:54 | DS ---
Date/Time of Note Date/Time of Note DATE: 07/24/18 TIME: 13:53 Discharge Summary Admission/Discharge Info Admit Date/Time July 21, 2018 at 22:38 Discharge Date/Time Discharge Diagnosis EPS Patient Condition: Stable Hospital Course Presented with facial droop and slurred speech concerning for stroke. Imaging was negative for stroke. Symptoms resolved. Cleared by neurology. Symptosm thought to be secondary to EPS from antipsychotics. She was encouraged to follow up with her psychiatrist for medication management and further care. Notably she clearly does NOT have dementia so I encouraged her to stop taking memantine and donepezil Home Meds Active Scripts Meclizine Hcl* (Antivert*) 12.5 Mg Tab, 25 MG PO Q6H PRN for DIZZINESS, #20 TAB Prov:MICHELLE CASAREZ MD 10/24/17 Reported Medications Quetiapine Fumarate* (Quetiapine Fumarate*) 200 Mg Tablet, 200 MG PO HS, TAB 09/22/17 Memantine* (Namenda*) 5 Mg Tablet, 5 MG PO BID, #60 TAB 09/22/17 Valbenazine Tosylate (Ingrezza) 40 Mg Capsule, 40 MG PO, CAP 09/22/17 Propranolol Hcl* (Propranolol Hcl*) 10 Mg Tablet, 10 MG PO BID, TAB take 10mg by mouth in the morning and 20mg at lunch. 04/05/17 Clonazepam* (Clonazepam*) 0.5 Mg Tablet, 0.25 MG PO BID, TAB 04/05/17 Escitalopram Oxalate* (Lexapro*) 20 Mg Tablet, 20 MG PO QHS, #30 TAB 03/29/17 Benztropine Mesylate* (Cogentin*) 1 Mg Tab, 1 MG PO BID, TAB 03/28/17 Donepezil* (Donepezil*) 5 Mg Tablet, 5 MG PO DAILY, #30 TAB 03/28/17 Discontinued Reported Medications Quetiapine Fumarate* (Seroquel* XR) 400 Mg Tab.sr.24h, 400 MG PO QHS, #30 TAB 03/29/17 Primary Care Provider Not On Staff Doctor MALLORY MADERA MD July 24, 2018 13:54
--- NOTE | 2018-07-24 22:00 | RADRPT ---
Echocardiogram Report Patient Name: ZUHAIR RICKETTSPatient ID: [id number] : 1965 (53y 5m)Study Date: 07/23/2018 1:57:40 PM Gender: FAccession #: [id number] Tech: [facility] Location: Ref.Physician: MIGUE BLOUNT Height(Cm): 160 BSA: 1.61Weight(Kg): 58.1 Quality: AdequateAccount #: Procedures: Echocardiographic Report: Transthoracic echocardiogram with complete 2D, M-Mode, and doppler examination. Indications: Cerebrovascular Accident. Measurements: 2D/M Mode Doppler Measurement Value Normal Range Measurement Value Normal Range LVIDd 2D 4.5 [ 3.8 - 5.2 ] cm AV Peak Pablo 1.4 [ 100.0 - 170.0 ] cm/se c LVIDs 2D 2.7 [ 2.2 - 3.5 ] cm AV Peak PG 8.0 [ 2.0 - 9.0 ] mmHg LVPWd 2D 1.0 [ 0.6 - 0.9 ] cm LVOT Peak Pablo 1.0 [ 70.0 - 110.0 ] cm/sec IVSd 2D 1.0 [ 0.6 - 0.9 ] cm LVOT Peak PG 4.0 [ 2.0 - 6.0 ] mmHg AoR Diam 2D 2.9 [ 2.3 - 3.1 ] cm MV E Peak Pablo 0.6 [ 60.0 - 130.0 ] cm/sec EDV 2D 93.4 [ 46.0 - 106.0 ] ml MV A Peak Pablo 0.4 [ 100.0 - 120.0 ] cm/se c ESV 2D 26.8 [ 14.0 - 42.0 ] ml MV E/A 1.5 [ 0.8 - 1.5 ] ratio EF 2D 71.3 [ 54.0 - 74.0 ] percent MV PHT 68.0 [ 20.0 - 100.0 ] msec LA Dimen 2D 3.3 [ 2.7 - 3.8 ] cm MV Decel Time 232 [ 104 - 258 ] msec MV Decel [place] 3 Lat E` Pablo 0.1 [ 10.0 - 15.0 ] cm/sec Lateral E/E` 6.3 [ 1.0 - 2.0 ] ratio Med E` Pablo 0.1 cm/sec MV E/A 1.5 [ 0.8 - 1.5 ] ratio MVA PHT 3.2 [ 2.0 - 4.0 ] cm2 TR Peak Pablo 2.0 [ 100.0 - 280.0 ] cm/se c TR Peak PG 16.0 mmHg PV Peak Pablo 0.9 [ 40.0 - 80.0 ] cm/sec PV Peak PG 3.0 mmHg RVSP 26.0 [ 10.0 - 36.0 ] mmHg RA Pressure 10.0 mmHg Findings: Left Ventricle: Normal left ventricular systolic function. Normal left ventricular cavity size. Normal left ventricular wall thickness. Ejection fraction is visually estimated at 65 %. Abnormal Diastolic Function. Right Ventricle: Normal right ventricular size. Normal right ventricular systolic function. Left Atrium: The left atrium is normal in size. Right Atrium: The right atrium is normal in size. Mitral Valve: Normal appearance and function of the mitral valve with trace physiologic regurgitation. Aortic Valve: Normal appearance of the aortic valve. No significant aortic stenosis or insufficiency. Tricuspid Valve: Normal appearance and function of the tricuspid valve with trace physiologic regurgitation. Estimated peak PA systolic pressure 26 mmHg. Pulmonic Valve: Normal pulmonic valve appearance. No evidence of pulmonic regurgitation. Pericardium: Normal pericardium with no significant pericardial effusion. Aorta: Normal aortic root. IVC: Normal size and normal respiratory collapse consistent with normal right atrial pressure. Pulmonary Artery: Normal pulmonary artery size. Conclusions: Normal left ventricular systolic function. Normal left ventricular cavity size. Normal left ventricular wall thickness. Ejection fraction is visually estimated at 65 %. Abnormal Diastolic Function. Normal right ventricular size. Normal right ventricular systolic function. The left atrium is normal in size. The right atrium is normal in size. No significant valvular stenosis or regurgitation seen. Normal pericardium with no significant pericardial effusion. Electronically Signed By: Rian Stockton 2018-07-24 21:59:09 PDT
== END 2018-07-24 16:25 | disposition home or self-care (01) | DRG 57 ==
LOC: E/R 21:08 → 6WM 22:38
PROVIDERS: ADMIT Internal Medicine; ATTEND Internal Medicine
DX: G25.9 Extrapyramidal and movement disorder, unspecified (principal); R47.81 Slurred speech; K11.7 Disturbances of salivary secretion; R29.810 Facial weakness; F20.9 Schizophrenia, unspecified; Z87.891 Personal history of nicotine dependence
CPT/HCPCS: 36415; 70450; 70496; 70498; 70551; 71045; 80053; 80061; 80307; 81001; 82550; 82553; 83036; 83735; 84443; 84484; 85025; 85610; 85730; 92610; 93005; 93306; 97110; 97116; 97162; 97530; J1630; J1650; Q9967